=== PATIENT | female | born 2000 | race Hispanic/Latino ===

== ENCOUNTER 2023-12-15 11:17 | Emergency (ER) | payer BC, OTHER ==
[~2023-12-15] VITALS: Ht 160 cm; Wt 66.2 kg
[2023-12-15 12:04] LABS: BASOPHILS # (AUTO) 0.05 K/uL (0.00-0.20); BASOPHILS % (AUTO) 0.4 % (0.0-5.0); HEMATOCRIT 37.1 % (36-48); IMMATURE GRANULOCYTE ABSOLUTE 0.07 K/uL (0-1); LYMPHOCYTES # (AUTO) 0.7 K/uL (1.0-4.8); LYMPHOCYTES % (AUTO) 5.7 % (21.0-51.0); MEAN CORPUSCULAR HEMOGLOBIN 30.8 pg (27.0-33.0); MEAN CORPUSCULAR VOLUME 87.9 fL (79-99); MONOCYTES # (AUTO) 0.3 K/uL (0.1-1.0); MONOCYTES % (AUTO) 2.5 % (3.0-13.0); NEUTROPHILS # (AUTO) 11.4 K/uL (1.8-7.7); NEUTROPHILS % (AUTO) 90.8 % (40.0-77.0); PLATELET COUNT (AUTO) 434 K/uL (130-400); RED BLOOD CELL COUNT(AUTO) 4.22 MIL/uL (4.00-5.50); WHITE BLOOD COUNT (AUTO) 12.6 K/uL (4.8-10.8)
[2023-12-15] MEDS: MAG/ALUM/SIMETH 30 ML UDCUP PO ONE (12:04)
[2023-12-15] MEDS: PANTOPRAZOLE 40 MG/VIAL IVP ONE (12:04)
[2023-12-15] MEDS: LACTATED RINGERS 1000ML 1,000 ML IV ONE (12:04)
[2023-12-15] MEDS: ONDANSETRON 4MG INJ IVP ONE (12:04)
[2023-12-15] MEDS: LIDOCAINE HCL 2% VISCOUS 15 ML UDCUP PO ONE (12:05)
[2023-12-15 12:19] LABS: CREATININE 0.9 mg/dL (0.5-1.0); POTASSIUM 3.7 mmol/L (3.5-5.1)
[2023-12-15 12:23] LABS: ALBUMIN 4.4 g/dL (3.5-5.0); BILIRUBIN,TOTAL 0.8 mg/dL (0.2-1.0); TOTAL PROTEIN, SERUM 8.4 g/dL (6.0-8.3)
[2023-12-15 14:12] LABS: APPEARANCE,URINE CLEAR (CLEAR); BILIRUBIN,URINE NEGATIVE (NEGATIVE); COLOR,URINE LIGHT-YELLOW (YELLOW); GLUCOSE, URINE (UA) NEGATIVE (NEGATIVE); KETONES,URINE 150 mg/dL (NEGATIVE); LEUKOCYTE ESTERASE ,URINE 25 Leu/uL (NEGATIVE); NITRATE,URINE NEGATIVE (NEGATIVE); OCCULT BLOOD,URINE SMALL (NEGATIVE); PH,URINE 7.5 (5.0-8.0); PROTEIN,URINE 30 mg/dL (NEGATIVE); UROBILINOGEN,URINE 0.2 mg/dL (0.2-1.0)
[2023-12-15 14:18] LABS: HCG,QUALITATIVE URINE NEGATIVE (NEGATIVE)
[2023-12-15 14:19] LABS: AMPHET/METH SCREEN,URINE NEGATIVE (NEGATIVE); BARBITURATE SCREEN, URINE NEGATIVE (NEGATIVE); BENZODIAZEPINES SCREEN,URINE NEGATIVE (NEGATIVE); CANNABINOID SCREEN,URINE NEGATIVE (NEGATIVE); COCAINE SCREEN,URINE NEGATIVE (NEGATIVE); OPIATE SCREEN,URINE NEGATIVE (NEGATIVE); PHENCYCLIDINE SCREEN,URINE NEGATIVE (NEGATIVE)
[2023-12-15 14:23] LABS: ADD UA MICROSCOPIC YES
[2023-12-15 14:28] LABS: BACTERIA,URINE FEW /HPF (None Seen); MUCUS,URINE FEW LPF (None Seen); SQUAMOUS EPITHELIAL CELL,UR FEW /HPF (0-2)
[2023-12-15] MEDS ORDERED: PANT40TA55 PO (14:32)
[2023-12-15] MEDS: KETOROLAC 30MG VIAL (30MG/ML) IVP ONE (14:37)
[2023-12-15] MEDS: LACTATED RINGERS 1000ML IV ONE (14:37)
[2023-12-15 15:03] VITALS: BP 118/71; PULSE 80; RESP 22; O2SAT 98
== END 2023-12-15 15:19 | disposition home or self-care (01) ==
LOC: EDH 11:17
DX: K29.70 Gastritis, unspecified, without bleeding (principal); N39.0 Urinary tract infection, site not specified
CPT/HCPCS: 99284; 96374; 96361; 96375; 80053; 80305; 83690; 85025; 81025; 36415; 81001; J7120; J2405; J1885; C9113